=== PATIENT | male | born 1945 | race Two or more races ===

== ENCOUNTER 2017-10-08 19:08 | Inpatient (IN) | payer OTHER, MEDICARE ==
[~2017-10-08] VITALS: Ht 175.3 cm; Wt 51.3 kg
[2017-10-08 21:09] LABS: BASOPHIL % 0.7 % (0-2); PLATELET COUNT 286 x10^3mcL (130-400)
[2017-10-08 21:14] LABS: RED CELL DISTRIBUTION WIDTH 19.7 % (11.5-14.5)
[2017-10-08 21:18] LABS: CALCIUM 9.4 mg/dL (8.5-10.1); CARBON DIOXIDE 28.1 mmol/L (21-32); CHLORIDE SERUM 101 mmol/L (98-107); GLUCOSE SERUM 104 mg/dL (74-106); POTASSIUM SERUM 3.9 mmol/L (3.5-5.1); SODIUM SERUM 138 mmol/L (136-145)
[2017-10-08 21:21] LABS: ALBUMIN 3.3 g/dL (3.4-5.0); ALKALINE PHOSPHATASE 99 U/L (46-116); ALT/SGPT 17 U/L (16-63); AST/SGOT 13 U/L (15-37); BILIRUBIN TOTAL 0.34 mg/dL (0.20-1.00); LIPASE 754 IU/L (73-393); TOTAL PROTEIN, SERUM 7.9 g/dL (6.4-8.2)
[2017-10-08] MEDS ORDERED: GOOD SENSE OMEP20 MG PO (23:40)
[2017-10-09] VITALS (8 sets, daily range): BP systolic 132–167; BP diastolic 76–95
[2017-10-09 01:24] LABS: FREE T4 1.07 ng/dL (0.76-1.46); FREE THYROXINE INDEX 2.6 ug/dL (1.4-4.5); T4(THYROXINE) 6.1 ug/dL (4.7-13.3)
[2017-10-09 01:37] LABS: PHOSPHOROUS 4.3 mg/dL (2.5-4.9)
[2017-10-09 02:06] LABS: CHOLESTEROL/HDL RATIO 2.1
[2017-10-09 02:41] LABS: T3 TOTAL 0.87 ng/mL
[2017-10-09 06:33] LABS: TOTAL IRON BINDING CAPACITY 321 ug/dL (250-450)
[2017-10-09 06:43] LABS: IRON 22 ug/dL (65-170)
[2017-10-09 06:58] LABS: RED BLOOD CELLS 4.7 M/mm3 (4.52-5.90)
[2017-10-09 14:24] LABS: microscopic required? YES; urine erythrocyte TRACE (NEGATIVE)
[2017-10-09 14:37] LABS: AMPHETAMINE QUAL UR NONE DETECTED (NEG <=1000)
[2017-10-10 05:10] VITALS: BP 135/71
[2017-10-10 06:36] LABS: BASOPHIL % 0.3 % (0-2); PLATELET COUNT 294 x10^3mcL (130-400)
[2017-10-10 06:44] LABS: CALCIUM 8.5 mg/dL (8.5-10.1); CARBON DIOXIDE 23.7 mmol/L (21-32); CHLORIDE SERUM 108 mmol/L (98-107); CREATININE SERUM 0.9 mg/dL (0.7-1.3); GLUCOSE SERUM 100 mg/dL (74-106); PHOSPHOROUS 2.9 mg/dL (2.5-4.9); POTASSIUM SERUM 3.8 mmol/L (3.5-5.1); RED CELL DISTRIBUTION WIDTH 20.5 % (11.5-14.5); SODIUM SERUM 141 mmol/L (136-145)
[2017-10-10 06:45] LABS: rbc morphology (normal/abnorm) ABNORMAL (NORMAL)
[2017-10-10 09:38] VITALS: BP 131/70
[2017-10-10 13:09] VITALS: BP 151/82
[2017-10-10 16:59] VITALS: BP 120/84
[2017-10-10 20:30] VITALS: BP 158/72
[2017-10-11 05:39] VITALS: BP 143/78
[2017-10-11 07:33] LABS: CALCIUM 8.5 mg/dL (8.5-10.1); CARBON DIOXIDE 26.4 mmol/L (21-32); CHLORIDE SERUM 103 mmol/L (98-107); CREATININE SERUM 0.9 mg/dL (0.7-1.3); GLUCOSE SERUM 94 mg/dL (74-106); MAGNESIUM 2.2 mg/dL (1.8-2.4); PHOSPHOROUS 2.3 mg/dL (2.5-4.9); POTASSIUM SERUM 3.7 mmol/L (3.5-5.1); SODIUM SERUM 140 mmol/L (136-145)
[2017-10-11 08:23] LABS: PLATELET COUNT 148 x10^3mcL (130-400)
[2017-10-11 08:27] LABS: RED CELL DISTRIBUTION WIDTH 20.6 % (11.5-14.5)
[2017-10-11] MEDS ORDERED: FER300 PO (10:54)
[2017-10-11] MEDS ORDERED: NOR5 PO (10:54)
[2017-10-11] MEDS ORDERED: BG FS (11:15)
[2017-10-11] MEDS ORDERED: COL100 PO (11:17)
[2017-10-11 11:27] LABS: BAND NEUTROPHIL 2 % (0-10); BASOPHIL 0 % (0-2); MONOCYTE 9 % (0-7); SEGMENTED NEUTROPHILS 58 % (37-75); rbc morphology (normal/abnorm) ABNORMAL (NORMAL); target cell (codocyte) 1+
[2017-10-11 11:28] LABS: PLATELET MORPHOLOGY LARGE PLATELET SEEN; ovalocyte/elliptocyte 1+
[2017-10-11] MEDS ORDERED: VITC PO (11:53)
[2017-10-11] MEDS ORDERED: METFORMIN HCL500 MG PO (11:59)
[2017-10-11] MEDS ORDERED: ACCU-CHEK1 EACH MC (12:06)
[2017-10-11] MEDS ORDERED: OMEPRAZOLE40 M1 PO (12:08)
[2017-10-11 13:16] VITALS: BP 147/78
[2017-10-11 15:09] VITALS: BP 130/86
[2017-10-11] MEDS ORDERED: REGLAN10 M1 PO (15:32)
[2017-10-11] MEDS ORDERED: OMEPRAZOLE20 M3 PO (15:32)
[2017-10-11] MEDS ORDERED: LAC30L PO (15:32)
== END 2017-10-11 17:54 | disposition home or self-care (01) | DRG 247 ==
LOC: ED 19:08 → MU 10-09 00:14 → DU 10-09 00:14 → MU 10-11 09:35
PROVIDERS: Emergency Medicine; Family Medicine; Internal Medicine Gastroenterology
PROC: 0DB78ZX Excision of Stomach, Pylorus, Via Natural or Artificial Opening Endoscopic, Diagnostic (ICD-10-PCS; principal; 2017-10-10 13:30)
PROC: 0DJD8ZZ Inspection of Lower Intestinal Tract, Via Natural or Artificial Opening Endoscopic (ICD-10-PCS; 2017-10-11)
DX: K56.609 Unspecified intestinal obstruction, unspecified as to partial versus complete obstruction (principal); E44.0 Moderate protein-calorie malnutrition; D68.69 Other thrombophilia; E11.65 Type 2 diabetes mellitus with hyperglycemia; I10 Essential (primary) hypertension; Z66 Do not resuscitate; Z68.1 Body mass index [BMI] 19.9 or less, adult; Z87.891 Personal history of nicotine dependence; Z88.2 Allergy status to sulfonamides; D63.8 Anemia in other chronic diseases classified elsewhere; K21.0 Gastro-esophageal reflux disease with esophagitis; K26.7 Chronic duodenal ulcer without hemorrhage or perforation; K22.70 Barrett's esophagus without dysplasia
CPT/HCPCS: 43235; 45378; 82962; 83880; 84439; C9113; J1200; J1610; J2250; J2310; J2765; J2916; J3010; J3490; J7030; J7042; Q0092; Q9966; Q9967